=== PATIENT | male | born 1990 | race Caucasian/White ===

== ENCOUNTER 2020-04-27 07:15 | Inpatient (IN) ==
[2020-04-27] MEDS ORDERED: 0.9 % Sodium Chloride 1,000 ML IVC ONE (07:22)
[2020-04-27] MEDS ORDERED: *HR* Midazolam HCl 5 MG/5 ML VIAL IVP ONE ×4 (07:24→08:21)
[2020-04-27] MEDS ORDERED: diazePAM 10 MG/2 ML SYRINGE IVP STA (07:24)
[2020-04-27] MEDS ORDERED: cefTRIAXone 1,000 MG in Water for inj. (sterile) 10 ML IVP ONE (07:34)
[2020-04-27 07:52] LABS: Basophils % 0.2 %; Eosinophils % 0.1 %; Hematocrit 42.3 % (37.5-50.1); Immature Granulocytes % 3.5 % (0-4); Lymphocytes # 2.1 K/mcL (0.6-4.6); Lymphocytes % 9.1 %; Mean Corpuscular HGB Conc 33.1 g/dL (31.6-35.5); Mean Corpuscular Volume 96.6 fL (83.0-100.0); Monocytes # 1.8 K/mcL (0.0-1.3); Monocytes % 7.9 %; Neutrophils # 17.9 K/mcL (1.6-8.9); Nucleated Red Blood Cells 0.1 /100 WBC (0); Platelet Count 203 K/mcL (140-400); Red Blood Count 4.38 M/mcL (4.19-5.50); Red Cell Distribution Width 11.8 % (11.5-14.5); Segmented Neutrophils % 79.2 %; White Blood Count 22.6 K/mcL (4.3-11.1)
[2020-04-27 07:52] LABS: VBG HCO3 16 mEq/L (21-27); VBG PCO2 56 mmHg (41-51); VBG PH 7.06 pH Units (7.32-7.42); VBG PO2 51 mmHg (25-50)
[2020-04-27] MEDS ORDERED: Ipratropium/Albuterol Neb 3 ML IH ONE (07:59)
[2020-04-27] MEDS ORDERED: Azithromycin 500 MG in 0.9 % Sodium Chloride 250 ML IVPB ONE (08:01)
[2020-04-27 08:20] LABS: Acetaminophen < 10 mcg/mL (10-20); Alanine Aminotransferase 117 Units/L (7-52); Albumin 4.3 g/dL (3.5-5.7); Albumin/Globulin Ratio 1.7 (1.1-2.2); Alkaline Phosphatase 142 Units/L (34-104); Aspartate Amino Transferase 126 Units/L (13-39); BUN/Creatinine Ratio 23 (6-26); Bilirubin,Total 0.9 mg/dL (0.3-1.0); Blood Urea Nitrogen 39 mg/dL (6-20); Calcium 8.9 mg/dL (8.6-10.3); Carbon Dioxide 15 mEq/L (23-29); Chloride 101 mEq/L (98-107); Ethanol < 10 mg/dL (Less than 10); Globulin 2.6 g/dL (2.4-3.5); Glucose 73 mg/dL (70-105); Osmolality,Calculated 298 (280-300); Potassium 4.3 mEq/L (3.5-5.1); Sodium 140 mEq/L (136-145); Total Protein 6.9 g/dL (6.4-8.9); eGFR For African Americans 59 (> 60); eGFR For Non-African Americans 49 (> 60)
[2020-04-27] MEDS: Midazolam HCl 50 MG/100 ML IV.SOLN IVC SCH (08:31)
[2020-04-27 08:32] LABS: Bilirubin,Urine Negative (Negative); Blood,Urine Moderate (Negative); Clarity,Urine Clear (Clear); Color,Urine Yellow (Yellow); Glucose,Urine (UA) Normal (Normal); Hyaline Casts,Urine Many per lpf (None Seen); Ketones,Urine 40 mg/dL (Negative); Leukocyte Esterase,Urine Negative (Negative); Mucus,Urine Few per lpf (None-Few); Nitrite,Urine Negative (Negative); PH,Urine 5.5 pH Units (5.0-8.0); Protein,Urine 50 mg/dL (Neg-Trace); RBC,Urine 0-3 per hpf (0-3); Specific Gravity,Urine 1.028 (1.010-1.025); Squamous Epithelial Cell,Urine Few per hpf (None-Few)
[2020-04-27] MEDS: FentaNYL (PF) 1,000 MCG/100 ML IV.SOLN IVC SCH ×2 (08:32→15:35)
[2020-04-27] MEDS ORDERED: 0.9 % Sodium Chloride 250 ML IVC ONE (08:36)
[2020-04-27] MEDS ORDERED: Tdap (Boostrix) Vaccine 0.5 ML SYRINGE IM ONE (08:38)
[2020-04-27 08:54] LABS: Thyroid Stimulating Hormone 0.426 mcIU/mL (0.340-5.600); Troponin I 0.14 ng/mL (< 0.04)
[2020-04-27] MEDS ORDERED: Isovue-370 500 ML BOTTLE IVP ONE (09:05)
[2020-04-27] MEDS ORDERED: Aspirin 81 MG TAB.CHEW PO STA (09:07)
[2020-04-27 09:12] LABS: Amphetamine Screen,Urine Positive ng/mL (Cutoff=1000); Barbiturate Screen,Urine Negative ng/mL (Cutoff=200); Benzodiazepines Screen,Urine Negative ng/mL (Cutoff=200); Cannabinoid Screen,Urine Negative ng/mL (Cutoff = 50); Cocaine Screen,Urine Negative ng/mL (Cutoff= 300); Opiate Screen,Urine Positive ng/mL (Cutoff=300); Phencyclidine Screen,Urine Negative ng/mL (Cutoff=25)
[2020-04-27 09:12] LABS: ABG Base Excess -6 mEq/L (-2 to 3); ABG HCO3 22 mEq/L (21-27); ABG Oxygen Saturation 95 % (95-98); ABG PCO2 56 mmHg (35-45); ABG PH 7.21 pH Units (7.32-7.45); ABG PO2 91 mmHg (85-104); ABG TCO2 24 mEq/L (20-26); Blood Gas Modality ASSIST CONTROL
[2020-04-27] MEDS ORDERED: Artificial Tears SOLN 15 ML BOTTLE BOTH EYES PRN (10:03)
[2020-04-27] MEDS ORDERED: 0.9 % Sodium Chloride 1,000 ML IVC SCH (10:15)
[2020-04-27] MEDS ORDERED: *HR* Heparin 5,000 UNIT/ML VIAL SQ SCH ×2 (10:15→22:00)
[2020-04-27 10:26] LABS: Creatine Kinase 4024 Units/L (30-223)
[2020-04-27] MEDS: Dexmedetomidine HCl 400 MCG/100 ML MLS IVC SCH (12:34)
[2020-04-27] MEDS: Artificial Tears SOLN 15 ML BOTTLE BOTH EYES SCH ×4 (12:38→23:16)
[2020-04-27] MEDS: Chlorhexidine Rinse 15 ML MOUTHWASH MM SCH ×2 (12:38→20:15)
[2020-04-27] MEDS ORDERED: Ringers Solution, Lactated 1,000 ML ONE (12:53)
[2020-04-27] MEDS: Ringers Solution, Lactated 1,000 ML IVC SCH ×2 (12:59→18:12)
[2020-04-27] MEDS ORDERED: Perflutren Lipid Microsphere 1.3 ML in 0.9 % Sodium Chloride 8.7 ML IVP PRN (13:42)
[2020-04-27 14:06] LABS: ABG Base Excess -9 mEq/L (-2 to 3); ABG HCO3 19 mEq/L (21-27); ABG Oxygen Saturation 94 % (95-98); ABG PCO2 44 mmHg (35-45); ABG PH 7.24 pH Units (7.32-7.45); ABG PO2 83 mmHg (85-104); ABG TCO2 20 mEq/L (20-26); Blood Gas Modality ASSIST CONTROL; Blood Gas VT 500 cc
[2020-04-27] MEDS ORDERED: *HR* Etomidate 20 MG/10 ML AMPUL IVP ONE (14:49)
[2020-04-27] MEDS ORDERED: *HR* Rocuronium Bromide 50 MG/5 ML VIAL IVP ONE (14:49)
[2020-04-27] MEDS ORDERED: 0.9 % Sodium Chloride 1,000 ML ONE (16:03)
[2020-04-27 16:12] LABS: Hematocrit 35.4 % (37.5-50.1); Mean Corpuscular HGB Conc 34.2 g/dL (31.6-35.5); Mean Corpuscular Volume 96.5 fL (83.0-100.0); Mean Platelet Volume 10.2 fL (9.4-12.4); Platelet Count 145 K/mcL (140-400); Red Blood Count 3.67 M/mcL (4.19-5.50); Red Cell Distribution Width 12.1 % (11.5-14.5); White Blood Count 15.9 K/mcL (4.3-11.1)
[2020-04-27 16:18] LABS: Hemoglobin 12.1 g/dL (12.9-16.9)
[2020-04-27 16:33] LABS: Alanine Aminotransferase 88 Units/L (7-52); Albumin 3.4 g/dL (3.5-5.7); Albumin/Globulin Ratio 1.7 (1.1-2.2); Alkaline Phosphatase 61 Units/L (34-104); Aspartate Amino Transferase 92 Units/L (13-39); BUN/Creatinine Ratio 29 (6-26); Bilirubin,Total 0.8 mg/dL (0.3-1.0); Blood Urea Nitrogen 33 mg/dL (6-20); Calcium 7.7 mg/dL (8.6-10.3); Carbon Dioxide 16 mEq/L (23-29); Chloride 107 mEq/L (98-107); Glucose 96 mg/dL (70-105); Magnesium 2.6 mg/dL (1.6-2.6); Osmolality,Calculated 293 (280-300); Phosphorous 4.3 mg/dL (2.7-4.5); Potassium 4.3 mEq/L (3.5-5.1); Sodium 138 mEq/L (136-145); Total Protein 5.4 g/dL (6.4-8.9); eGFR For African Americans > 60 (> 60); eGFR For Non-African Americans > 60 (> 60)
[2020-04-27 16:41] LABS: Lymphocytes # 1.3 K/mcL (0.6-4.6); Neutrophils # 11.6 K/mcL (1.6-8.9); Reactive Lymphocytes Present (Not Present); Toxic Granulation Present (Not Present)
[2020-04-27 16:42] LABS: Platelet Estimate Normal (Normal)
[2020-04-27] MEDS ORDERED: *HR* Heparin 5,000 UNIT/ML VIAL IVP PRN ×2 (16:54)
[2020-04-27] MEDS ORDERED: *HR* Heparin 5,000 UNIT/ML VIAL IVP ONE (16:54)
[2020-04-27] MEDS: Albuterol 2.5 MG/3 ML NEBULIZER IH SCH ×2 (16:55→21:42)
[2020-04-27 17:00] LABS: VBG HCO3 19 mEq/L (21-27); VBG PCO2 46 mmHg (41-51); VBG PH 7.22 pH Units (7.32-7.42); VBG PO2 188 mmHg (25-50)
[2020-04-27 17:47] LABS: HIV-1&2 Antibody & p24 Ag Nonreactive (Nonreactive)
[2020-04-27 17:48] LABS: Hepatitis A Antibody IgM Nonreactive (Nonreactive); Hepatitis B Core IgM Nonreactive (Nonreactive)
[2020-04-27] MEDS: Famotidine 20 MG/2 ML VIAL IVP SCH (18:12)
[2020-04-27] MEDS: Heparin 25,000UNIT/250ML 1/2NS 25,000 UNIT/250 ML IV.SOLN IVC SCH (18:13)
[2020-04-27 18:20] LABS: Hematocrit 33.8 % (37.5-50.1); Hemoglobin 11.5 g/dL (12.9-16.9); Mean Corpuscular Hemoglobin 32.8 pg (28.0-33.3); Mean Corpuscular Volume 96.3 fL (83.0-100.0); Mean Platelet Volume 9.9 fL (9.4-12.4); Platelet Count 132 K/mcL (140-400); Red Blood Count 3.51 M/mcL (4.19-5.50); Red Cell Distribution Width 12.1 % (11.5-14.5); White Blood Count 13.8 K/mcL (4.3-11.1)
[2020-04-27 18:31] LABS: Heparin anti-factor XA UFH < 0.04 IU/mL (0.30-0.70); Prothrombin Time 11.9 Seconds (9.4-12.1)
[2020-04-27] MEDS: Aspirin 81 MG TAB.CHEW PO SCH (18:31)
[2020-04-27 18:38] LABS: Chol/HDL Ratio 1.4 (0-4.9)
[2020-04-27 19:06] LABS: Hepatitis C Virus Antibody Reactive (Nonreactive)
[2020-04-27] MEDS: Norepinephrine 4 MG/254 ML IV.SOLN IVC SCH (19:23)
[2020-04-27 19:39] LABS: Hepatitis B Surface Antigen Nonreactive (Nonreactive)
[2020-04-28] MEDS: Ringers Solution, Lactated 1,000 ML IVC SCH ×4 (01:13→20:55)
[2020-04-28] MEDS: FentaNYL (PF) 1,000 MCG/100 ML IV.SOLN IVC SCH ×4 (01:42→18:37)
[2020-04-28] MEDS: Artificial Tears SOLN 15 ML BOTTLE BOTH EYES SCH ×6 (03:21→23:11)
[2020-04-28] MEDS: Albuterol 2.5 MG/3 ML NEBULIZER IH SCH ×4 (04:14→21:59)
[2020-04-28 05:27] LABS: ABG Base Excess -1 mEq/L (-2 to 3); ABG HCO3 25 mEq/L (21-27); ABG Oxygen Saturation 100 % (95-98); ABG PCO2 46 mmHg (35-45); ABG PH 7.35 pH Units (7.32-7.45); ABG PO2 267 mmHg (85-104); ABG TCO2 27 mEq/L (20-26); Blood Gas Modality ASSIST CONTROL; Blood Gas VT 500 cc
[2020-04-28 05:31] LABS: Basophils % 0.1 %; Hematocrit 32.6 % (37.5-50.1); Hemoglobin 11.2 g/dL (12.9-16.9); Immature Granulocytes % 3.4 % (0-4); Lymphocytes # 0.9 K/mcL (0.6-4.6); Lymphocytes % 6.1 %; Mean Corpuscular HGB Conc 34.4 g/dL (31.6-35.5); Mean Corpuscular Hemoglobin 32.7 pg (28.0-33.3); Mean Platelet Volume 9.9 fL (9.4-12.4); Monocytes # 1.4 K/mcL (0.0-1.3); Monocytes % 9.4 %; Platelet Count 147 K/mcL (140-400); Red Blood Count 3.43 M/mcL (4.19-5.50); Red Cell Distribution Width 12.4 % (11.5-14.5); White Blood Count 14.8 K/mcL (4.3-11.1)
[2020-04-28] MEDS: Famotidine 20 MG/2 ML VIAL IVP SCH ×2 (05:32→17:04)
[2020-04-28 05:34] LABS: VBG Ionized Calcium 1.05 mmol/L (1.15-1.35)
[2020-04-28] MEDS ORDERED: *HR* Midazolam HCl 2 MG/2 ML VIAL IVP ONE (05:39)
[2020-04-28 05:50] LABS: BUN/Creatinine Ratio 30 (6-26); Blood Urea Nitrogen 26 mg/dL (6-20); Calcium 7.8 mg/dL (8.6-10.3); Carbon Dioxide 24 mEq/L (23-29); Chloride 110 mEq/L (98-107); Glucose 127 mg/dL (70-105); Magnesium 2.4 mg/dL (1.6-2.6); Osmolality,Calculated 298 (280-300); Phosphorous 3.1 mg/dL (2.7-4.5); Potassium 4.2 mEq/L (3.5-5.1); Sodium 141 mEq/L (136-145); eGFR For African Americans > 60 (> 60); eGFR For Non-African Americans > 60 (> 60)
[2020-04-28] MEDS: Chlorhexidine Rinse 15 ML MOUTHWASH MM SCH ×2 (07:50→19:37)
[2020-04-28] MEDS: Aspirin 81 MG TAB.CHEW PO SCH (07:50)
[2020-04-28] MEDS: Midazolam HCl 50 MG/100 ML IV.SOLN IVC SCH (08:32)
[2020-04-28] MEDS ORDERED: cefTRIAXone 1,000 MG in Water for inj. (sterile) 10 ML IVP SCH (09:00)
[2020-04-28] MEDS ORDERED: Calcium Gluconate 1gm/50mL 1 GM/50 ML BAG IVPB ONE (10:44)
[2020-04-28] MEDS ORDERED: Azithromycin 500 MG in 0.9 % Sodium Chloride 250 ML IVPB SCH (11:00)
[2020-04-28] MEDS ORDERED: Potassium Chloride 40 MEQ/200 ML BAG IVPB PRN (11:47)
[2020-04-28] MEDS ORDERED: Potassium Phosphate 44 MEQ in 0.9 % Sodium Chloride 250 ML IVPB PRN (11:47)
[2020-04-28] MEDS ORDERED: Calcium Gluconate 1gm/50mL 1 GM/50 ML BAG IVPB PRN (11:47)
[2020-04-28 12:16] LABS: Salicylate < 2.5 mg/dL (15.0-30.0)
[2020-04-28] MEDS: Dexmedetomidine HCl 400 MCG/100 ML MLS IVC SCH (16:05)
[2020-04-28] MEDS: MetroNIDAZOLE 500 MG/100 ML 500 MG/100 ML BAG IVPB SCH ×2 (16:20→23:12)
[2020-04-28] MEDS: Norepinephrine 4 MG/254 ML IV.SOLN IVC SCH (16:21)
[2020-04-28] MEDS: Cefepime HCl 1,000 MG in Water for inj. (sterile) 10 ML IVP SCH (17:03)
[2020-04-28] MEDS: Heparin 25,000UNIT/250ML 1/2NS 25,000 UNIT/250 ML IV.SOLN IVC SCH (23:13)
[2020-04-29] MEDS: FentaNYL (PF) 2,500 MCG/50 ML IV.SOLN IVC SCH ×2 (00:34→07:50)
[2020-04-29] MEDS: Artificial Tears SOLN 15 ML BOTTLE BOTH EYES SCH ×6 (03:42→21:17)
[2020-04-29 03:58] LABS: Basophils % 0.1 %; Hematocrit 30.6 % (37.5-50.1); Hemoglobin 10.3 g/dL (12.9-16.9); Immature Granulocytes % 0.9 % (0-4); Lymphocytes # 1.4 K/mcL (0.6-4.6); Lymphocytes % 14.6 %; Mean Corpuscular HGB Conc 33.7 g/dL (31.6-35.5); Mean Corpuscular Hemoglobin 32.7 pg (28.0-33.3); Mean Corpuscular Volume 97.1 fL (83.0-100.0); Mean Platelet Volume 10.7 fL (9.4-12.4); Monocytes # 0.9 K/mcL (0.0-1.3); Monocytes % 9.6 %; Neutrophils # 7.2 K/mcL (1.6-8.9); Platelet Count 144 K/mcL (140-400); Red Blood Count 3.15 M/mcL (4.19-5.50); Segmented Neutrophils % 74.8 %; White Blood Count 9.6 K/mcL (4.3-11.1)
[2020-04-29 04:12] LABS: BUN/Creatinine Ratio 30 (6-26); Blood Urea Nitrogen 24 mg/dL (6-20); Calcium 7.9 mg/dL (8.6-10.3); Carbon Dioxide 27 mEq/L (23-29); Chloride 112 mEq/L (98-107); Glucose 118 mg/dL (70-105); Magnesium 2.9 mg/dL (1.6-2.6); Osmolality,Calculated 301 (280-300); Phosphorous 2.1 mg/dL (2.7-4.5); Potassium 4.9 mEq/L (3.5-5.1); Sodium 143 mEq/L (136-145); eGFR For African Americans > 60 (> 60); eGFR For Non-African Americans > 60 (> 60)
[2020-04-29] MEDS: Albuterol 2.5 MG/3 ML NEBULIZER IH SCH ×2 (04:31→10:06)
[2020-04-29 04:43] LABS: ABG Base Excess 2 mEq/L (-2 to 3); ABG HCO3 26 mEq/L (21-27); ABG Oxygen Saturation 99 % (95-98); ABG PCO2 39 mmHg (35-45); ABG PH 7.43 pH Units (7.32-7.45); ABG PO2 112 mmHg (85-104); ABG TCO2 27 mEq/L (20-26); Blood Gas Modality AF; Blood Gas VT 500 cc
[2020-04-29] MEDS: Famotidine 20 MG/2 ML VIAL IVP SCH (05:00)
[2020-04-29] MEDS: Cefepime HCl 1,000 MG in Water for inj. (sterile) 10 ML IVP SCH (05:00)
[2020-04-29] MEDS: MetroNIDAZOLE 500 MG/100 ML 500 MG/100 ML BAG IVPB SCH (07:19)
[2020-04-29] MEDS: Aspirin 81 MG TAB.CHEW PO SCH (07:39)
[2020-04-29] MEDS: Chlorhexidine Rinse 15 ML MOUTHWASH MM SCH (07:39)
[2020-04-29] MEDS: Ringers Solution, Lactated 1,000 ML IVC SCH (09:40)
[2020-04-29] MEDS: Midazolam HCl 50 MG/100 ML IV.SOLN IVC SCH (15:11)
[2020-04-29] MEDS: Dexmedetomidine HCl 400 MCG/100 ML MLS IVC SCH (15:11)
[2020-04-29] MEDS: Norepinephrine 4 MG/254 ML IV.SOLN IVC SCH (15:19)
[2020-04-29] MEDS ORDERED: Artificial Tears SOLN 15 ML BOTTLE BOTH EYES PRN (15:35)
[2020-04-29] MEDS ORDERED: Albuterol 2.5 MG/3 ML NEBULIZER IH SCH (16:00)
[2020-04-29] MEDS ORDERED: Ketorolac 30 MG/ML VIAL IM ONE (18:45)
[2020-04-29] MEDS ORDERED: Albuterol 2.5 MG/3 ML NEBULIZER IH PRN (18:46)
[2020-04-29] MEDS: metroNIDAZOLE 500 MG TABLET PO SCH (21:17)
[2020-04-29] MEDS: Ketorolac 15 MG/ML VIAL IVP PRN (21:36)
[2020-04-30] MEDS: Ondansetron 4 MG/2 ML VIAL IVP PRN ×2 (00:08→08:08)
[2020-04-30] MEDS: Artificial Tears SOLN 15 ML BOTTLE BOTH EYES SCH ×3 (05:16→13:51)
[2020-04-30 05:21] LABS: Basophils % 0.4 %; Eosinophils % 0.4 %; Hematocrit 31.4 % (37.5-50.1); Hemoglobin 10.4 g/dL (12.9-16.9); Immature Granulocytes % 2.4 % (0-4); Lymphocytes # 1.9 K/mcL (0.6-4.6); Lymphocytes % 26.4 %; Mean Corpuscular HGB Conc 33.1 g/dL (31.6-35.5); Mean Corpuscular Hemoglobin 32.1 pg (28.0-33.3); Mean Corpuscular Volume 96.9 fL (83.0-100.0); Mean Platelet Volume 10.5 fL (9.4-12.4); Monocytes # 0.7 K/mcL (0.0-1.3); Monocytes % 9.6 %; Neutrophils # 4.3 K/mcL (1.6-8.9); Platelet Count 160 K/mcL (140-400); Red Blood Count 3.24 M/mcL (4.19-5.50); Red Cell Distribution Width 12.6 % (11.5-14.5); Segmented Neutrophils % 60.8 %; White Blood Count 7.1 K/mcL (4.3-11.1)
[2020-04-30 06:13] LABS: BUN/Creatinine Ratio 30 (6-26); Blood Urea Nitrogen 21 mg/dL (6-20); Calcium 8.2 mg/dL (8.6-10.3); Carbon Dioxide 24 mEq/L (23-29); Chloride 109 mEq/L (98-107); Creatine Kinase 2887 Units/L (30-223); Glucose 103 mg/dL (70-105); Osmolality,Calculated 293 (280-300); Sodium 140 mEq/L (136-145); eGFR For African Americans > 60 (> 60); eGFR For Non-African Americans > 60 (> 60)
[2020-04-30] MEDS: Ketorolac 15 MG/ML VIAL IVP PRN (06:34)
[2020-04-30] MEDS: metroNIDAZOLE 500 MG TABLET PO SCH (08:09)
[2020-04-30] MEDS ORDERED: levoFLOXacin 750 MG TABLET PO SCH (09:00)
[2020-04-30] MEDS ORDERED: Aspirin 81 MG TAB.CHEW PO SCH (09:00)
[2020-04-30 11:34] VITALS: BP 116/70
== END 2020-04-30 14:50 | disposition home or self-care (01) | DRG 812 ==
LOC: EMEROOARM 07:15 → ICNU 10:22 → 3BNU 04-29 16:10
PROVIDERS: ADMIT Internal Medicine; ATTEND Internal Medicine